=== PATIENT | male | born 1990 ===

== ENCOUNTER 2023-10-03 10:57 | Emergency (ER) | payer SELFPAY ==
[~2023-10-03] VITALS: Ht 167.6 cm; Wt 73.0 kg
[2023-10-03 11:00] VITALS: BP 136/82; PULSE 74; RESP 16; O2SAT 98
[2023-10-03] MEDS: ONDANSETRON 4MG ODT PO ONE (13:14)
[2023-10-03 13:15] VITALS: TEMP 97.5
[2023-10-03] MEDS: ACETAMINOPHEN 650MG/20.3ML UDC PO ONE (13:15)
[2023-10-03] MEDS ORDERED: ONDA4TAB50 MT (14:49)
== END 2023-10-03 15:24 | disposition home or self-care (01) ==
LOC: ER 10:57
DX: M54.50 Low back pain, unspecified (principal); M54.2 Cervicalgia; R51.9 Headache, unspecified
CPT/HCPCS: 99284; 70450; 72125; 72128; 72131; Q0162